=== PATIENT | female | born 1980 | race Caucasian/White ===

== ENCOUNTER 2017-04-29 03:29 | Emergency (ER) | payer SELFPAY ==
[~2017-04-29] VITALS: Wt 136.1 kg
[~2017-04-29 03:29] MED LIST: AMOXICILLIN500 MG PO; KEFLEX500 MG PO; MOTRIN600 MG PO; MOTRIN800 MG PO; NKHM; PERCOCET 325 MG1 TA7 PO; PRENATAL1 TA1 PO; TUMS500 MG; VICODIN 5/500 505 MG PO
== END 2017-04-29 03:40 | disposition home or self-care (01) ==
LOC: ED 03:29
DX: F11.10 Opioid abuse, uncomplicated (principal); Z98.51 Tubal ligation status

== ENCOUNTER 2017-05-16 20:51 | Emergency (ER) | payer SELFPAY ==
[~2017-05-16] VITALS: Ht 175.2 cm; Wt 127.0 kg
--- NOTE | ~2017-05-16 | EKG ---
[place], [place] ELECTROCARDIOGRAM REPORT NAME: JOSHUA ESPINAL UNIT #: [id number] ROOM: DOCTOR: TARI PARHAM,JONES BIRTHDATE: [birth year] DOS: 05/16/2017 TIME: 2108. IMPRESSION: 1. Sinus rhythm. 2. Normal QT interval. 3. No ischemic changes. JONES MARC MD CM:EKGRPT:ELECTROCARDIOGRAM REPORT [id number] JONES MARC MD
[2017-05-16 21:20] LABS: BASO # 0.1 10*3/uL (0.0-0.1); BASO % 0.4 % (0.0-1.0); EOS # 0.8 10*3/uL (0.0-0.4); EOS % 4.6 % (1.0-4.0); HEMATOCRIT 44.4 % (37.0-47.0); HEMOGLOBIN 14.8 g/dl (12.0-16.0); LYMPH # 4.3 10*3/uL (1.3-4.4); MEAN CELL VOLUME 90.2 fl (81.0-99.0); MEAN CORPUSCULAR HGB 30.1 pg (27.0-31.0); MEAN CORPUSCULAR HGB CONC 33.3 g/dl (33.0-37.0); MEAN PLATELET VOLUME 9.8 fl (9.6-12.3); MONO # 0.9 10*3/uL (0.1-1.0); MONO % 5.3 % (3.0-9.0); NEUT # 10.4 10*3/uL (2.3-7.9); NEUT % 63.2 % (47.0-73.0); PLATELET COUNT AUTOMATED 323 10*3/uL (130-400); RED BLOOD COUNT 4.92 10*6/uL (4.10-5.10); RED CELL DISTRI WIDTH 12.6 % (0-14.5); WHITE BLOOD COUNT 16.4 10*3/uL (4.8-10.8)
[2017-05-16 21:28] LABS: BILIRUBIN NEGATIVE (NEGATIVE); BLOOD NEGATIVE (NEGATIVE); CLARITY CLOUDY (CLEAR); COLOR YELLOW (YELLOW); GLUCOSE NEGATIVE (NEGATIVE); KETONE NEGATIVE (NEGATIVE); LEUKO ESTERASE TRACE (NEGATIVE); NITRITE NEGATIVE (NEGATIVE); SPECIFIC GRAVITY >= 1.030 (1.005-1.030)
[2017-05-16 21:34] LABS: URINE AMPHETAMINES < 1000 (1000ng/ml); URINE BARBITURATES < 200 (200ng/ml); URINE BENZODIAZEPINES < 200 (200ng/ml); URINE CANNABINOIDS (THC) < 50 (50ng/ml); URINE COCAINE < 300 (300ng/ml); URINE METHADONE < 300 (300ng/ml); URINE OPIATES > 300 (300ng/ml); URINE PHENCYCLIDINE < 25 (25ng/ml)
[2017-05-16 21:35] LABS: ACETAMINOPHEN (TYLENOL) < 2.0 ug/ml (10-30); ALBUMIN 3.8 gm/dl (3.1-4.5); ALKALINE PHOSPHATASE 85 U/L (45-117); BUN 12 mg/dl (7-24); CHLORIDE 106 mmol/L (98-107); CREATININE 0.91 mg/dL (0.55-1.02); ETHYL ALCOHOL < 3.0 mg/dl (<3); POTASSIUM 3.6 mmol/L (3.5-5.1); SGOT/AST 18 IU/L (3-35); SGPT/ALT 28 U/L (12-78); SODIUM 141 mmol/L (136-145); TOTAL PROTEIN 7.6 gm/dL (6.4-8.2)
[2017-05-16 21:38] LABS: BACTERIA 2+; MUCOUS TRACE; RBC 0-2 rbc/hpf (0-2); WBC TNTC wbc/hpf (0-5)
[2017-05-16 21:43] LABS: B-hCG (QUALITATIVE) NEGATIVE (NEGATIVE)
[2017-05-17] MEDS ORDERED: MACROBID100 M1 PO (03:04)
== END 2017-05-17 19:45 | disposition home health service (06) ==
LOC: ED 20:51
PROVIDERS: Physician Assistant
DX: R45.851 Suicidal ideations (principal); F11.10 Opioid abuse, uncomplicated; F17.200 Nicotine dependence, unspecified, uncomplicated; Z98.51 Tubal ligation status